=== PATIENT | male | born 1935 | race Hispanic/Latino ===

== ENCOUNTER 2022-03-18 09:56 | Outpatient (CLI) | payer MEDICARE | END 2022-03-18 09:57 | disposition home or self-care (01) | LOC: CSHRAD 09:56 | PROVIDERS: ATTEND Otolaryngology Plastic Surgery within the Head & Neck | DX: J69.0 Pneumonitis due to inhalation of food and vomit (principal); R13.12 Dysphagia, oropharyngeal phase; K21.9 Gastro-esophageal reflux disease without esophagitis | CPT/HCPCS: 74230 ==

== ENCOUNTER 2023-02-13 13:22 | Outpatient (CLI) | payer MEDICARE, OTHER ==
[~2023-02-13 13:22] MED LIST: Magnevist 469MG/ML 20 ML VIAL ONE
== END 2023-02-13 13:23 | disposition home or self-care (01) ==
LOC: CSHMRI 13:22
PROVIDERS: ATTEND Otolaryngology Plastic Surgery within the Head & Neck
DX: R42 Dizziness and giddiness (principal); G31.89 Other specified degenerative diseases of nervous system; I67.89 Other cerebrovascular disease
CPT/HCPCS: 70553; 82565; A9579